=== PATIENT | male | born 1945 ===

== ENCOUNTER → 2018-10-24 20:11 | Outpatient (REF) | payer MEDICARE, SELFPAY ==
[2018-10-24 20:37] LABS: Hematocrit 48.8 % (41-53); Hemoglobin 16.5 g/dL (13.5-17.5); Mean Corpuscular HGB Conc 33.8 % (30-36); Mean Corpuscular Hemoglobin 30.1 PG (26-34); Mean Corpuscular Volume 89.2 fL (80-100); Platelet Count 205 X10^3/uL (150-400); Red Blood Cell Count 5.47 X10^6/uL (4.5-5.9); Red Cell Distribution Width 13.8 % (11.6-14.8); White Blood Cell Count 14.1 X10^3/uL (4.5-11.0)
[2018-10-24 20:40] LABS: Add Manual Diff / Slide Review YES
[2018-10-24 20:46] LABS: Alanine Aminotransferase 10 IU/L (21-72); Albumin Globulin Ratio 1.4 (1.0-2.8); Alkaline Phosphatase 76 U/L (38-126); Aspartate Aminotransferase 29 IU/L (17-59); Bilirubin Total 2.9 mg/dL (0.2-1.3); Blood Urea Nitrogen 31 mg/dL (9-20); Calcium 9.3 mg/dL (8.4-10.2); Carbon Dioxide 25 mmol/L (22-32); Chloride 102 mmol/L (98-107); Estimated Glomerular Filt Rate > 60.0 mL/min (>60); Globulin 2.8 g/dL (1.7-4.1); Glucose 106 mg/dL (80-110); Sodium 137 mmol/L (137-145); Total Protein 6.8 g/dL (6.3-8.2)
[2018-10-24 21:47] LABS: HEMOLYSIS 70 (0-50)
[2018-10-24 21:48] LABS: Potassium 4.2 mmol/L (3.4-5.1)
[2018-10-24 22:05] LABS: Neutrophils Absolute Manual 10575 /uL (3000-5900); RBC Morphology Normal Morphology; Total Cells Counted 100
[2018-10-26 15:55] LABS: Cancer (Carbohydrate) Ag 19-9 18 U/mL (< 34)
[2018-10-27 09:36] LABS: Hepatitis A Antibody IgM NONREACTIVE (NONREACTIVE); Hepatitis Acute Panel Interp 0.01; Hepatitis B Core Antibody IgM NONREACTIVE (NONREACTIVE); Hepatitis B Surface Antigen NONREACTIVE (NONREACTIVE); Hepatitis C Antibody NONREACTIVE
== END ==
LOC: LAB 20:11
PROVIDERS: Visit Provider Nurse Practitioner Acute Care
DX: R53.81 Other malaise; R53.1 Weakness; R42 Dizziness and giddiness; R73.01 Impaired fasting glucose; R63.0 Anorexia; Z79.1 Long term (current) use of non-steroidal anti-inflammatories (NSAID)
CPT/HCPCS: 80053; 80074; 83036; 85025; 86301